=== PATIENT | female | born 1960 | race African-American/Black ===

== ENCOUNTER 2017-07-31 08:33 | Outpatient (CLI) | payer BC | END 2017-07-31 08:34 | disposition home or self-care (01) | LOC: BICRAD 08:33 | PROVIDERS: ATTEND Internal Medicine Rheumatology | DX: M17.12 Unilateral primary osteoarthritis, left knee (principal) ==

== ENCOUNTER 2018-08-07 09:43 | Outpatient (CLI) | payer BC | END 2018-08-07 09:44 | disposition home or self-care (01) | LOC: BICMAMMO 09:43 | PROVIDERS: ATTEND Family Medicine | DX: R92.8 Other abnormal and inconclusive findings on diagnostic imaging of breast (principal); Z80.3 Family history of malignant neoplasm of breast | CPT/HCPCS: 77066; G0279 ==

== ENCOUNTER 2019-06-08 16:23 | Outpatient (CLI) | payer BC ==
--- NOTE | 2019-06-08 17:06 | RAD ---
RADIOGRAPH LUMBAR SPINE 2 VIEWS: DATE: 06-08-19 HISTORY: 58-year-old female with low back pain and bilateral lumbar radiculopathy. FINDINGS: Two weightbearing views. There are six non-rib bearing lumbar type vertebrae. No scoliosis. For the p urposes of this report, the first non-rib bearing vertebra will be designated as L1, and the last lum bar type vertebra is designated at L6. Vertebral body heights are maintained. Disc space narrowing is mild at T12-L1 and L1-2, mild to moderate at L3-4, moderate at L4-5, moderate at L5-6, and moderate to severe at L6-S1. There is a grade I anterolisthesis of L5 on L6. There is facet DJD at lower level s. IMPRESSION: 1. Lumbar spondylosis with multilevel degenerative disc disease and lower level facet osteoarthrosis. 2. Grade I spondylolisthesis at L5-6. 3. Six lumbar type vertebrae. JN POS: CET
== END 2019-06-08 16:24 | disposition home or self-care (01) ==
LOC: BICRAD 16:23
PROVIDERS: ATTEND Family Medicine
DX: M54.5 Low back pain (principal); M47.816 Spondylosis without myelopathy or radiculopathy, lumbar region; M51.36 Other intervertebral disc degeneration, lumbar region; M43.16 Spondylolisthesis, lumbar region
CPT/HCPCS: 72100

== ENCOUNTER 2019-08-03 12:34 | Outpatient (CLI) | payer BC ==
--- NOTE | 2019-08-03 13:30 | MRI ---
MR the lumbar spine without contrast: 08/03/2019 History: Low back pain with right leg numbness and pain COMPARISON: None. TECHNIQUE: Multiplanar multisequence MR images were obtained of lumbar spine without IV contrast FINDINGS: On the basis of 5 lumbar type vertebral bodies, conus medullaris terminates at [id number] level. Sagittal STIR imaging demonstrates no focal area of osseous marrow edema. T12-L1:Bilateral facet hypertrophy. There is anterior osteophyte formation. No significant central ca nal or neural foraminal stenosis. L1-2:Mild bilateral facet hypertrophy. Intervertebral disc height and signal intensity within normal limits. No significant central canal or neural foraminal stenosis. L2-3: Bilateral facet hypertrophy. There is disc space narrowing and disc desiccation with mild disc bulge. No significant associated central canal or neural foraminal stenosis. L3-4: Bilateral facet hypertrophy and hypertrophy of the ligamentum flavum. There is disc space narro wing and disc desiccation with mild disc bulge. No significant central canal or neural foraminal stenosis on the right. Mild left neural foraminal stenosis. L4-5:Prominent bilateral facet hypertrophy, right greater than left. There is disc space narrowing an d disc desiccation with disc bulge. There is anterolisthesis measuring approximately 6 mm. There is moderate central canal stenosis with severe right lateral recess stenosis. There is moderate/severe r ight neural foraminal stenosis and mild left neural foraminal stenosis. L5-S1:Prominent bilateral facet hypertrophy. There is disc space narrowing and disc desiccation with mild disc bulge. No central canal stenosis. Severe left and moderate/severe right neural foraminal stenosis. Vacuum disc formation at L5-S1. Image retroperitoneal structures demonstrateno acute findings.. IMPRESSION: Prominent lower lumbar spine degenerative change with associated central canal and neural foraminal s tenosis as documented above.
== END 2019-08-03 12:35 | disposition home or self-care (01) ==
LOC: TBSIIMAG 12:34
PROVIDERS: ATTEND Family Medicine
DX: M51.17 Intervertebral disc disorders with radiculopathy, lumbosacral region (principal); M05.79 Rheumatoid arthritis with rheumatoid factor of multiple sites without organ or systems involvement; M47.816 Spondylosis without myelopathy or radiculopathy, lumbar region; M48.061 Spinal stenosis, lumbar region without neurogenic claudication; M47.817 Spondylosis without myelopathy or radiculopathy, lumbosacral region; M48.07 Spinal stenosis, lumbosacral region
CPT/HCPCS: 72148

== ENCOUNTER 2019-11-09 14:13 | Outpatient (CLI) | payer BC ==
--- NOTE | 2019-11-09 14:34 | RAD ---
EXAM: Chest PA and lateral: HISTORY: Chronic cough. COMPARISON: 07/26/2016 FINDINGS: Heart: Normal cardiac silhouette Aorta: Unremarkable Pulmonary vessels: Normal Costophrenic angles: Costophrenic angles are clear. Lungs: No consolidation or masses. Pneumothorax: No pneumothorax Osseous structures: No osseous abnormalities IMPRESSION: No acute cardiopulmonary process.
== END 2019-11-09 14:14 | disposition home or self-care (01) ==
LOC: BICRAD 14:13
PROVIDERS: ATTEND Physician Assistant
DX: R05 Cough (principal)
CPT/HCPCS: 71046

== ENCOUNTER 2020-09-13 14:50 | Outpatient (CLI) | payer BC | END 2020-09-13 14:51 | disposition home or self-care (01) | LOC: BICMAMMO 14:50 | PROVIDERS: ATTEND Family Medicine | DX: N63.20 Unspecified lump in the left breast, unspecified quadrant (principal) | CPT/HCPCS: 76999; 77066; G0279 ==

== ENCOUNTER 2020-10-17 11:04 | Outpatient (CLI) | payer BC ==
[2020-10-18 01:26] LABS: SARS-CoV-2 PCR by NAA Not Detected (NotDetected)
== END 2020-10-17 11:05 | disposition home or self-care (01) ==
LOC: LABBT 11:04
PROVIDERS: ATTEND Internal Medicine Gastroenterology
DX: M05.79 Rheumatoid arthritis with rheumatoid factor of multiple sites without organ or systems involvement (principal); Z20.822 Contact with and (suspected) exposure to COVID-19
CPT/HCPCS: 87635; U0003; U0005

== ENCOUNTER 2020-10-20 11:18 | Day surgery (SDC) | payer BC ==
[2020-10-19 12:08] VITALS: BMI 50.2
[2020-10-20] MEDS ORDERED: PROPOFOL 200 MG/20 ML VIAL ONE (14:19)
== END 2020-10-20 15:45 | disposition home or self-care (01) ==
LOC: SDC 11:18
PROVIDERS: ATTEND Internal Medicine Gastroenterology
PROC: 0DJD8ZZ Inspection of Lower Intestinal Tract, Via Natural or Artificial Opening Endoscopic (ICD-10-PCS; principal; 2020-10-20)
DX: Z12.11 Encounter for screening for malignant neoplasm of colon (principal); K64.8 Other hemorrhoids; Q43.8 Other specified congenital malformations of intestine; M19.90 Unspecified osteoarthritis, unspecified site; E11.9 Type 2 diabetes mellitus without complications; K21.9 Gastro-esophageal reflux disease without esophagitis; E78.00 Pure hypercholesterolemia, unspecified; I10 Essential (primary) hypertension; G47.30 Sleep apnea, unspecified; E66.01 Morbid (severe) obesity due to excess calories; Z68.43 Body mass index [BMI] 50.0-59.9, adult; Z86.010 Personal history of colon polyps; Z79.82 Long term (current) use of aspirin; Z79.84 Long term (current) use of oral hypoglycemic drugs; Z79.899 Other long term (current) drug therapy
CPT/HCPCS: J2704

== ENCOUNTER 2021-08-15 10:08 | Outpatient (CLI) | payer BC | END 2021-08-15 10:09 | disposition home or self-care (01) | LOC: ULT 10:08 | PROVIDERS: ATTEND Family Medicine | DX: M79.604 Pain in right leg (principal) ==

== ENCOUNTER 2022-06-25 08:29 | Outpatient (CLI) | payer BC | END 2022-06-25 08:30 | disposition home or self-care (01) | LOC: BICRAD 08:29 | PROVIDERS: ATTEND Internal Medicine Rheumatology | DX: M19.011 Primary osteoarthritis, right shoulder (principal) ==

== ENCOUNTER 2022-09-11 12:23 | Outpatient (CLI) | payer BC | END 2022-09-11 12:24 | disposition home or self-care (01) | LOC: BICMAMMO 12:23 | PROVIDERS: ATTEND Family Medicine | DX: Z12.31 Encounter for screening mammogram for malignant neoplasm of breast (principal); Z91.89 Other specified personal risk factors, not elsewhere classified; Z98.82 Breast implant status | CPT/HCPCS: 77063; 77067 ==

== ENCOUNTER 2022-12-19 15:35 | Outpatient (CLI) | payer BC | END 2022-12-19 15:36 | disposition home or self-care (01) | LOC: RAD 15:35 | PROVIDERS: ATTEND Internal Medicine | DX: J06.9 Acute upper respiratory infection, unspecified (principal); R05.9 Cough, unspecified; R09.89 Other specified symptoms and signs involving the circulatory and respiratory systems | CPT/HCPCS: 71046 ==

== ENCOUNTER 2023-10-09 15:13 | Outpatient (CLI) | payer BC | END 2023-10-09 15:14 | disposition home or self-care (01) | LOC: BICMAMMO 15:13 | PROVIDERS: ATTEND Family Medicine | DX: Z12.31 Encounter for screening mammogram for malignant neoplasm of breast (principal); Z80.3 Family history of malignant neoplasm of breast; Z91.89 Other specified personal risk factors, not elsewhere classified; Z98.890 Other specified postprocedural states | CPT/HCPCS: 77063; 77067 ==

== ENCOUNTER 2025-04-27 14:17 | Outpatient (CLI) | payer BC ==
[~2025-04-27 14:17] MED LIST: Iopamidol 370 76% 100 ML VIAL ONE
[2025-04-27 14:54] LABS: Estimated GFR - POC 63.0
== END 2025-04-27 14:18 | disposition home or self-care (01) ==
LOC: CT 14:17
PROVIDERS: ATTEND Family Medicine
DX: J98.4 Other disorders of lung (principal); R91.8 Other nonspecific abnormal finding of lung field; N63.20 Unspecified lump in the left breast, unspecified quadrant
CPT/HCPCS: 36415; 71260; 82565; Q9967